=== PATIENT | female | born 1950 | race Two or more races ===

== ENCOUNTER 2023-12-14 13:10 | Emergency (ER) | payer OTHER ==
[~2023-12-14] VITALS: Ht 162.6 cm; Wt 90.0 kg
[~2023-12-14 13:10] MED LIST: PRED20TA2 PO; TAMS-35 PO
[2023-12-14 14:16] VITALS: TEMP 98; O2SAT 96
[2023-12-14] MEDS: ONDANSETRON ODT 4 MG TAB PO ONE (14:38)
[2023-12-14 14:41] VITALS: BP 158/68; PULSE 74; RESP 18
[2023-12-14] MEDS: MORPHINE SULFATE 4 MG/ML SYR/VIAL IM ONE (14:41)
[2023-12-14] MEDS ORDERED: PRED20TA2 PO (15:54)
[2023-12-14] MEDS ORDERED: NABU-72 PO (15:54)
[2023-12-14] MEDS ORDERED: METH-1181 PO (15:54)
== END 2023-12-14 15:54 | disposition home or self-care (01) ==
LOC: ER 13:10
DX: M54.41 Lumbago with sciatica, right side (principal); E78.5 Hyperlipidemia, unspecified; I10 Essential (primary) hypertension; Z88.2 Allergy status to sulfonamides
CPT/HCPCS: 72100; 96372; 99283; J2270; Q0162

== ENCOUNTER 2024-04-30 19:48 | Emergency (ER) | payer OTHER ==
[~2024-04-30] VITALS: Ht 162.6 cm; Wt 83.4 kg
[~2024-04-30 19:48] MED LIST changes: +METH-1181 PO; +NABU-72 PO
[2024-04-30 20:30] LABS: Urine Bacteria None Seen /hpf (None Seen)
[2024-04-30 20:46] LABS: Urine Blood Negative /uL (Negative); Urine Clarity Clear (Clear); Urine Color Yellow (Yellow); Urine Hyaline Cast FEW /lpf (0 - 2); Urine Mucus FEW (None Seen); Urine Protein, UAD Negative (Negative); Urine Specific Gravity 1.019 (1.001-1.035); Urine Urobilinogen Normal (Negative); Urine WBC 5 /hpf (0 - 5)
[2024-04-30 21:05] LABS: Basophils # (auto) 0.1 10 ^3/uL (0-0.2); Basophils % (auto) 0.8 % (0.0-2.0); Eosinophils # (auto) 0.3 10 ^3/uL (0-0.8); Eosinophils % (auto) 2.3 % (0.0-7.0); Hematocrit 38.5 % (36.0-46.0); Hemoglobin 12.8 g/dL (12.2-16.2); Lymphocytes # (auto) 2.1 10 ^3/uL (0.4-5.4); Lymphocytes % (auto) 16.2 % (10.0-50.0); Mean Corpuscular Hemoglobin 30.5 pg (28.0-32.0); Mean Corpuscular Hgb Conc. 33.3 g/dL (32.0-36.0); Mean Corpuscular Volume 91.7 fL (80.0-100.0); Monocytes # (auto) 1.3 10 ^3/uL (0-1.3); Neutrophils # (auto) 9.1 10 ^3/uL (1.6-8.6); Neutrophils % (auto) 70.7 % (37.0-80.0); Red Blood Cells 4.19 10^6/uL (4.0-5.20); Red Cell Distribution Width 12.9 % (11.8-14.3); White Blood Cell 12.8 10^3/uL (4.4-10.8)
[2024-04-30 21:21] LABS: Alanine Aminotransferase 14 U/L (7-40); Albumin 4.1 g/dL (3.2-4.8); Alkaline Phosphatase 122 U/L (46-116); Anion Gap 4 (5-15); Aspartate Aminotransferase 9 U/L (13-40); BUN/Creatinine Ratio 17.7 (10.0-20.0); Bilirubin, Total 0.4 mg/dL (0.2-1.0); Blood Urea Nitrogen 11 mg/dL (9-23); Calcium 9.5 mg/dL (8.5-10.1); Carbon Dioxide 29 mmol/L (20-30); Chloride 111 mmol/L (98-107); Glucose 117 mg/dL (74-106); Potassium 3.9 mmol/L (3.5-5.1); Sodium 144 mmol/L (136-145); Total Protein 6.4 g/dL (5.7-8.2)
[2024-05-01 01:22] VITALS: TEMP 98.6
[2024-05-01] MEDS: MORPHINE SULFATE 4 MG/ML SYR/VIAL IV ONE (03:00)
[2024-05-01] MEDS: ONDANSETRON HCL 4 MG/2 ML VIAL IV ONE (03:00)
[2024-05-01 03:21] VITALS: O2SAT 99
[2024-05-01] MEDS: KETOROLAC TROMETH 30 MG/ML 1ML VIAL IV ONE (04:15)
[2024-05-01 04:28] VITALS: BP 147/55; PULSE 60; RESP 18
[2024-05-01] MEDS: METHOCARBAMOL 500 MG TAB PO ONE (04:34)
[2024-05-01] MEDS ORDERED: IBUP1TAB5 PO (05:18)
[2024-05-01] MEDS ORDERED: METH-1181 PO (05:18)
== END 2024-05-01 06:55 | disposition home or self-care (01) ==
LOC: ER 19:48
DX: M54.50 Low back pain, unspecified (principal); I10 Essential (primary) hypertension; R10.32 Left lower quadrant pain; Z88.2 Allergy status to sulfonamides; Z90.49 Acquired absence of other specified parts of digestive tract; Z90.710 Acquired absence of both cervix and uterus
CPT/HCPCS: 36415; 72131; 74176; 80053; 81001; 85025; 96374; 96375; 99284; J1885; J2270; J2405